=== PATIENT | male | born 1960 | race Caucasian/White ===

== ENCOUNTER → 2016-06-05 | Day surgery (SDC) | payer BC ==
[~2016-06-05] VITALS: Ht 188 cm; Wt 130.3 kg
[~2016-06-05] MED LIST: CIALIS5 MG PO; FLONASE 50 MCG/16 GM NOSE; MOTRIN800 MG PO; PRILOSEC20 MG PO; PROTONIX40 MG PO; TENORMIN25 MG PO; ZYRTEC10 MG PO
== END | disposition disaster alternative care site (69) ==
LOC: GPOC 05-30 09:00 → GEND 08:38 → GPOC 09:00
PROC: 0DB58ZX Excision of Esophagus, Via Natural or Artificial Opening Endoscopic, Diagnostic (ICD-10-PCS; principal; 2016-06-05)
PROC: 0D758ZZ Dilation of Esophagus, Via Natural or Artificial Opening Endoscopic (ICD-10-PCS; 2016-06-05)
DX: K20.9 Esophagitis, unspecified (principal); R13.10 Dysphagia, unspecified; I10 Essential (primary) hypertension; Z98.52 Vasectomy status; Z88.0 Allergy status to penicillin; Z98.890 Other specified postprocedural states; Z79.899 Other long term (current) drug therapy
CPT/HCPCS: C1726; J2001; J7030